=== PATIENT | male | born 1970 | race Hispanic/Latino ===

== ENCOUNTER 2021-05-04 12:08 | Outpatient (CLI) | payer OTHER ==
--- NOTE | 2021-05-04 13:50 | XRay Report ---
Right wrist-3 views Right hand-3 views INDICATION: RIGHT WRIST PAIN. COMPARISON: None available. IMPRESSION: No acute abnormality in the wrist or the hand. Normal alignment. No significant DJD. S oft tissues are unremarkable. Signer Name: Sam Hutson MD Signed: 05/04/2021 1:46 PM Workstation Name: [id number]
== END 2021-05-04 12:09 | disposition home or self-care (01) ==
LOC: XRAY 12:08
PROVIDERS: ATTEND Internal Medicine
DX: M25.531 Pain in right wrist (principal); M79.641 Pain in right hand